=== PATIENT | female | born 1955 | race Caucasian/White ===

== ENCOUNTER 2022-07-17 12:53 | Outpatient (CLI) | payer MEDICARE, OTHER ==
[~2022-07-17 12:53] MED LIST: Magnevist 469MG/ML 20 ML VIAL ONE
== END 2022-07-17 12:54 | disposition home or self-care (01) ==
LOC: CSHMRI 12:53
PROVIDERS: ATTEND Specialist
DX: M54.16 Radiculopathy, lumbar region (principal); M47.816 Spondylosis without myelopathy or radiculopathy, lumbar region; M51.37 Other intervertebral disc degeneration, lumbosacral region; M48.07 Spinal stenosis, lumbosacral region; M47.817 Spondylosis without myelopathy or radiculopathy, lumbosacral region
CPT/HCPCS: 72158; 82565; A9579

== ENCOUNTER 2023-07-03 09:42 | Outpatient (CLI) | payer MEDICARE, OTHER | END 2023-07-03 09:43 | disposition home or self-care (01) | LOC: CSHRAD 09:42 | PROVIDERS: ATTEND Neurological Surgery | DX: M47.26 Other spondylosis with radiculopathy, lumbar region (principal); Z98.890 Other specified postprocedural states | CPT/HCPCS: 72100 ==